=== PATIENT | female | born 1990 | race Caucasian/White ===

== ENCOUNTER 2025-05-28 18:41 | Emergency (ER) | payer BC, SELFPAY ==
[2025-05-28 18:44] VITALS: BP 125/81
[2025-05-28 19:44] VITALS: BMI 42.3
[2025-05-28] MEDS: NSS 1000 IV (19:57)
[2025-05-28] MEDS: REGLAN 10 MG IV (19:59)
[2025-05-28 20:06] LABS: Hematocrit 36.1 % (37.0-47.0); Hemoglobin 11.7 g/dL (12.0-16.0); Mean Corp Hgb Conc. 32.4 g/dL (33.0-37.0); Mean Corpuscular Volume 81.5 fL (81.0-99.0); Nucleated Red Blood Cells % 0 %; Platelet Count 306 10^3/uL (130-400); Red Cell Dist. Width 14.8 % (11.5-14.5)
[2025-05-28 20:21] LABS: ALT (SGPT) 18 U/L (0-35); AST (SGOT) 17 U/L (14-36); Albumin 4.2 g/dl (3.5-5.0); Alkaline Phosphatase 84 U/L (38-126); Blood Urea Nitrogen 8 mg/dl (7-17); Calcium 9.5 mg/dl (8.4-10.2); Carbon Dioxide 27 mmol/L (22-30); Chloride 102 mmol/L (98-107); Estimated Creatinine Clearance > 125 ml/min; Glucose 89 mg/dl (70-99); Potassium 4.1 mmol/L (3.5-5.1); Sodium 134 mmol/L (135-145); Total Protein 7.3 g/dl (6.3-8.2); eGFR > 60.00
[2025-05-28 21:46] VITALS: BP 90/63
--- NOTE | 2025-05-28 22:12 | ED.GENMED ---
History of Present Illness
General
Chief Complaint: Dehydration Symptoms
Time Seen by Provider: 05/28/25 19:22
History of Present Illness
History of Present Illness:
35-year-old female, currently 10 weeks gestational age presents to the emergency department for evaluation of intractable nausea and vomiting for the past several weeks. [employer] dizzy and lightheaded today due to lack of intake in the past 24
hours. Denies any pelvic pain, vaginal bleeding, or vaginal discharge. Has been using ondansetron without relief
Past History
Past History
ED Past Medical History: Other (Peptic ulcer disease)
ED Past Surgical History: None
Social History
Tobacco: Non-smoker
Alcohol: None
Drug: None
Personal: Single
Living: with family
Employment: Employed
Family History
Family History: Other
Review of Systems
Review of Systems
Allergies reviewed?: Yes
All Other Systems: ROS reviewed and negative except as documented in HPI and ROS
Phy Exam
Physical Exam
Physical Exam:
GEN: Well appearing, NAD, WDWN
HEENT: Oral mucosa moist, no scleral icterus
Cardiac: Regular rate
Lung: No respiratory distress, no tachypnea
MSK: No gross deformity or injuries
Skin: Good color, no pallor or jaundice, no rashes
Neuro: AO x3, moves all extremities freely
Psych: Calm, cooperative
Course
Orders/Labs/Results
Orders:
Orders
05/28/25 19:49
0.9% Sodium Chloride 1000 ml [Nss] 1,000 ml IV BOLUS
Metoclopramide [Reglan] 10 mg IV NOW STA
05/28/25 19:57
Complete Blood Count/With Diff Urgent
Comprehensive Metabolic Panel Urgent
Abnormal Lab Results
05/28/25
19:57
Hgb 11.7 L g/dL
(12.0-16.0)
Hct 36.1 L %
(37.0-47.0)
MCH 26.4 L pg
(27.0-31.0)
MCHC 32.4 L g/dL
(33.0-37.0)
RDW 14.8 H %
(11.5-14.5)
Sodium 134 L mmol/L
(135-145)
Creatinine 0.5 L mg/dL
(0.6-1.0)
05/28/25 19:57
05/28/25 19:57
Vital Signs
Initial and Last Documented VS:
Initial Vital Signs
Temp Pulse Resp BP Pulse Ox
98.3 F 94 16 125/81 100
05/28/25 18:44 05/28/25 18:44 05/28/25 18:44 05/28/25 18:44 05/28/25 18:44
Last Documented Vital Signs
Temp Pulse Resp BP Pulse Ox
98.3 F 63 18 90/63 99
05/28/25 18:44 05/28/25 21:46 05/28/25 21:46 05/28/25 21:46 05/28/25 22:12
MDM/Problems Addressed
MDM/Problems Addressed:
Labs unremarkable, given IV fluids and Reglan with dramatic improvement. Will have her discontinue Zofran in favor of metoclopramide, advised sparing use only on an as-needed basis
*Pulse Oximetry
SaO2: 99
Oxygen Mode of Delivery: Room air
Patient hypoxic: no
*Critical Care Note
Total Time (30-74mins, 75-104mins- exclusive of procedures): Not Applicable
ED Attending Note
-
Portions of this chart may have been created with voice recognition software.� Occasional wrong word or��sound alike� substitutions may have occurred due to the inherent limitations of voice recognition software.
Discharge Plan
Departure
Patient Disposition: Home (Routine Discharge)
Date of Disposition: 05/28/25
Time of Disposition: 22:12
Patient with high blood pressure during this ER visit?: No
Discharge Problem:
Nausea and vomiting during
Instructions: Nausea and Vomiting, Adult (DC)
Prescriptions:
New
metoclopramide HCl [Reglan] 10 mg tablet
10 mg PO Q8HPRN PRN (Reason: nausea and vomiting) Qty: 20 0RF
No Action
PNV no.95-ferrous fumarate-FA [ Multivitamins] 1 EACH tablet
1 ea PO DAILY
tramadol 50 MG tablet
50 mg PO Q6HPRN PRN (Reason: pain not relieved with tylenol) Qty: 25 0RF
acetaminophen [Tylenol Extra Strength] 500 MG tablet
500 mg PO Q6HPRN PRN (Reason: mild pain) 0RF
docusate sodium 100 MG capsule
100 mg PO BID 0RF
ibuprofen [Motrin IB] 200 MG tablet
200 mg PO Q4H
omeprazole magnesium [Prilosec OTC] 20 MG tablet,delayed release (DR/EC)
20 mg PO DAILYPRN PRN (Reason: while taking Motrin) Qty: 10 0RF
Rx Instructions:
while taking Motrin
Referrals:
Octaviano Torres DO [Family Provider, Family Practice]
Interventions
Interventions:
*Risk Screen - Suicide Last Done: 05/28/25 18:44
*General Assessment Last Done: 05/28/25 19:44
*Neglect/Abuse Screening Last Done: 05/28/25 18:44
*ED- Fall Risk Assessment Last Done: 05/28/25 19:44
*ED COVID-19 Vaccine History Last Done: 05/28/25 19:44
*ED Influenza Vaccine History Last Done: 05/28/25 19:44
*Nursing Disposition Last Done: 05/28/25 22:15
ED- Cardiac Assessment Last Done: 05/28/25 19:47
ED- Neurological Assessment Last Done: 05/28/25 19:47
ED- Pulmonary Assessment Last Done: 05/28/25 19:47
Discharge Date and Time
Discharge Date/Time: 05/28/25 22:34
Print Language: [place]
== END 2025-05-28 22:34 | disposition home or self-care (01) ==
LOC: EMR 18:41
PROVIDERS: Physician Assistant; EMERGENCY PHYSICIAN Student in an Organized Health Care Education/Training Program; FAMILY PHYSICIAN Family Medicine
DX: O21.9 Vomiting of pregnancy, unspecified (principal); Z3A.10 10 weeks gestation of pregnancy; Z87.11 Personal history of peptic ulcer disease
CPT/HCPCS: 99284; 96374; 96361; 80053; 85025

== ENCOUNTER → 2025-06-17 14:52 | Outpatient (REF) | payer BC, SELFPAY | LOC: PNTC 14:52 | PROVIDERS: ATTENDING PHYSICIAN Obstetrics & Gynecology | DX: Z36.0 Encounter for antenatal screening for chromosomal anomalies (principal); Z36.82 Encounter for antenatal screening for nuchal translucency | CPT/HCPCS: 76801; 76813 ==

== ENCOUNTER → 2025-07-07 10:29 | Outpatient (REF) | payer BC, SELFPAY | LOC: PNTC 10:29 | PROVIDERS: ATTENDING PHYSICIAN Obstetrics & Gynecology | DX: O99.212 Obesity complicating pregnancy, second trimester (principal); O99.322 Drug use complicating pregnancy, second trimester | CPT/HCPCS: 76805 ==

== ENCOUNTER 2025-07-24 20:38 | Emergency (ER) | payer OTHER, SELFPAY ==
[2025-07-24 20:40] VITALS: BP 119/87
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
--- NOTE | 2025-07-24 21:42 | EDRN ---
Received verbal order from Dr Weber to assess heart tones. Audible regular HR of approx [address] Weber updated.
== END 2025-07-24 22:43 | disposition home or self-care (01) ==
LOC: EMR 20:38
PROVIDERS: EMERGENCY PHYSICIAN Emergency Medicine; FAMILY PHYSICIAN Family Medicine
DX: O26.892 Other specified pregnancy related conditions, second trimester (principal); Z3A.18 18 weeks gestation of pregnancy; M54.50 Low back pain, unspecified; R10.30 Lower abdominal pain, unspecified; V43.52XA Car driver injured in collision with other type car in traffic accident, initial encounter; Y92.410 Unspecified street and highway as the place of occurrence of the external cause; Z87.11 Personal history of peptic ulcer disease
CPT/HCPCS: 99282

== ENCOUNTER → 2025-08-17 15:40 | Outpatient (REF) | payer BC, SELFPAY | LOC: PNTC 15:40 | PROVIDERS: ATTENDING PHYSICIAN Obstetrics & Gynecology | DX: Z36.3 Encounter for antenatal screening for malformations (principal); Z36.86 Encounter for antenatal screening for cervical length; O99.212 Obesity complicating pregnancy, second trimester; E66.01 Morbid (severe) obesity due to excess calories; O35.5XX0 Maternal care for (suspected) damage to fetus by drugs, not applicable or unspecified | CPT/HCPCS: 76811; 76817 ==

== ENCOUNTER → 2025-08-24 09:37 | Outpatient (REF) | payer BC, SELFPAY | LOC: PNTC 09:37 | PROVIDERS: ATTENDING PHYSICIAN Obstetrics & Gynecology | DX: Z36.0 Encounter for antenatal screening for chromosomal anomalies (principal); Z36.86 Encounter for antenatal screening for cervical length; O09.892 Supervision of other high risk pregnancies, second trimester | CPT/HCPCS: 76815 ==